=== PATIENT | female | born 1990 | race Caucasian/White ===

== ENCOUNTER → 2018-10-09 | Emergency (ER) | payer SELFPAY ==
[~2018-10-09] VITALS: Ht 160 cm; Wt 104.3 kg
[~2018-10-09] MED LIST: CEPHALEXIN500 MG PO; IMURAN50 MG PO; PLAQUENIL200 MG PO
== END ==
LOC: ED 20:59
DX: J02.9 Acute pharyngitis, unspecified (principal); Z88.0 Allergy status to penicillin
CPT/HCPCS: 87081; 87880; 99283